=== PATIENT | female | born 1950 | race Caucasian/White ===

== ENCOUNTER → 2024-08-17 | Outpatient (CLI) | payer MEDICARE ==
[2024-08-17 10:11] VITALS: BP 185/90; PULSE 67; RESP 17; TEMP 97.9
--- NOTE | 2024-08-17 10:36 | P.GSCN ---
History of Present Illness Consult date: 08/17/24 Reason for Consult: Right breast invasive ductal carcinoma Requesting physician: Dusty Melo History of present illness: Janet is a 73 year old female seen in consultation for DR. Calderon, and Dr Melo for a right breast ultrasound-guided core biopsy at the 4 o'clock position. This was performed on 08-03-2024. Pathology revealed a invasive high- grade ductal carcinoma and high-grade ductal carcinoma in situ. The lesion was ER negative IA negative and HER2 pending. [id number]. 08-03-2024 revealing the invasive ductal carcinoma and DCIS. Note Dr. Santos radiology the clip could be seen on the cc position but it is so far posterior it could not be seen in the lateral position and if needle localization were necessary it was recommended that it be done via ultrasound. She underwent a bilateral screening mammogram on 07-04-2024. In the right breast posteriorly there was an area of increased density noted. No lesions of concern were noted in the left breast. Additional right breast ultrasound was recommended. This was performed on 07-17-2024. This revealed a 6 x 5 mm irregular shaped area of nodularity at the 4 o'clock position for which biopsy was recommended. Biopsy was performed on 08-03-24. She does not feel any lumps masses or nodules of concern in either breast. She is not complaining of any skin changes or nipple discharge. She has not had any recent trauma or infection in the breast. She had a left breast biopsy in the past. She is a regular blood donor and has HTN so told to see a property loss insurance claim adjuster Note Dr. Melo reviewed from 06-16-24 caffeine: 1 coffee/day nicotine: none chocolate: occasional BCP: < 5 years hormones: none Family History: daughter: Breast cancer, genetic testing not know results Maternal Aunt: Breast cancer father: lymph node cancer, ? 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 left she has to drink, about twice a month Nicotine: Negative Drugs: Negative Review of Systems - Constitutional Denies fever, Denies weight loss - EENT Eyes: denies blurred vision Ears: deny: decreased hearing, tinnitus Ears, nose, mouth and throat: Denies dysphagia - Breasts bilateral: as per HPI - Cardiovascular Cardiovascular Comment(s): murmur Reports as per HPI, Denies chest pain, Denies shortness of breath - Respiratory Denies cough, Denies 7 - Gastrointestinal Reports as per HPI - Genitourinary Genitourinary: Denies dysuria, Denies hematuria Menstruation: Reports postmenopausal - Musculoskeletal Reports as per HPI - Integumentary Denies rash, Denies unusual bruising - Neurological Denies headaches, Denies syncope - Psychiatric Reports as per HPI - Endocrine Reports as per HPI - Hematologic/Lymphatic Denies easy bleeding, Denies easy bruising - Allergic/Immunologic Reports as per HPI, Reports seasonal allergies Past Medical History Past Medical History: Hyperlipidemia, Hypertension, Thyroid Disorder History of Any Multi-Drug Resistant Organisms: None Reported Past Surgical History: Appendectomy, Hernia Repair, Tubal Ligation Additional Past Surgical History / Comment(s): 2-3 breast biopsy left breast- benign Past Anesthesia/Blood Transfusion Reactions: No Reported Reaction Past Psychological History: No Psychological Hx Reported Smoking Status: Never smoker Past Alcohol Use History: Rare Past Drug Use History: None Reported Medications and Allergies Home Medications Medication Instructions Recorded Confirmed Type Aspirin [[place] Aspirin EC] 81 mg PO DAILY 07/26/24 08/17/24 History Ezetimibe [Zetia] 10 mg PO DAILY 07/26/24 08/17/24 History Levothyroxine Sodium [Synthroid] 75 mcg PO DAILY 07/26/24 08/17/24 History amLODIPine [Norvasc] 10 mg PO DAILY 07/26/24 08/17/24 History lisinopriL 30 mg PO DAILY 07/26/24 08/17/24 History Allergies Allergy/AdvReac Type Severity Reaction Status Date / Time Sulfa (Sulfonamide Allergy Itching Verified 08/17/24 10:07 Antibiotics) Surgical - Exam - General no distress - Eyes normal ocular movement - Neck trachea midline - Respiratory normal respiratory effort, clear to auscultation - Cardiovascular Rhythm: regular Heart Sounds: normal: S1, S2 - Integumentary normal turgor - Neurologic no disoriented, no combative - Musculoskeletal normal gait - Psychiatric oriented to time, oriented to person, oriented to place, speech is normal, memory intact Breast Exam: BRA: 34A Inspection: bilateral grade 2 ptosis Palpation: right breast: Multi positional exam slight increased nodularity at the 4 o'clock position of the right breast, biopsy site clean and dry, questionable small hematoma at biopsy site otherwise no dominant masses or nodules of concern Right axilla: Shotty adenopathy nonworrisome Left breast: Multi positional exam no dominant masses or nodules of concern Left axilla: Shotty adenopathy nonworrisome Results bilateral mammogram and right breast mammogram results reviewed Assessment and Plan Assessment: Impression: right breast biopsy invasive ductal cancer Plan: present at tumor board CC: Dr. Melo
== END ==
LOC: WWCWWP 09:38
PROVIDERS: ATTEND Surgery
DX: C50.911 Malignant neoplasm of unspecified site of right female breast (principal); Z88.2 Allergy status to sulfonamides

== ENCOUNTER → 2024-09-14 | Outpatient (CLI) | payer MEDICARE ==
[2024-09-14 12:50] VITALS: BP 191/92; PULSE 80; RESP 16; TEMP 97.7
--- NOTE | 2024-09-14 13:02 | P.BCPN ---
Subjective Progress Note Date: 09/14/24 History of Present Illness Consult date: 09-14-24 Reason for Consult: Right breast invasive ductal carcinoma Requesting physician: Dusty Melo History of present illness: Janet is a 73 year old female seen in consultation for DR. Calderon, and Dr Melo for a right breast ultrasound-guided core biopsy at the 4 o'clock position. This was performed on 08-03-2024. Pathology revealed a invasive high- grade ductal carcinoma and high-grade ductal carcinoma in situ. The lesion was ER negative MO negative and HER2 pending. Postpro 08-03-24. 08-03-2024 revealing the invasive ductal carcinoma and DCIS. Note Dr. Santos radiology the clip could be seen on the cc position but it is so far posterior it could not be seen in the lateral position and if needle localization were necessary it was recommended that it be done via ultrasound. She underwent a bilateral screening mammogram on 07-04-2024. In the right breast posteriorly there was an area of increased density noted. No lesions of concern were noted in the left breast. Additional right breast ultrasound was recommended. This was performed on 07-17-2024. This revealed a 6 x 5 mm irregular shaped area of nodularity at the 4 o'clock position for which biopsy was recommended. Biopsy was performed on 08-03-24. She does not feel any lumps masses or nodules of concern in either breast. She is not complaining of any skin changes or nipple discharge. She has not had any recent trauma or infection in the breast. She had a left breast biopsy in the past. She is a regular blood donor and has HTN so told to see a architectural draftsperson Note Dr. Melo reviewed from 06-16-24 Case presented at tumor board on 08 22 24. The patient is recommended to undergo a right breast lumpectomy with sentinel node biopsy possible chemotherapy and radiation therapy secondary to the fact that this is a triple negative tumor. The patient is going to have genetic testing done and she would like to have the results of that test prior to making her final decision as to her operative intervention. I have called her and discussed that we would still recommend a lumpectomy however she states she wants to see the results of the genetic testing prior to making her final decision. We will ask that the Blackmon be put on the genetic testing. clearance cardiology and primary care We have discussed treatment options and patient would prefer right breast needle localization lumpectomy and SNB possible AND, oncoplastic tissue transfer. caffeine: 1 coffee/day nicotine: none chocolate: occasional BCP: < 5 years hormones: none Family History: daughter: Breast cancer, genetic testing not know results Maternal Aunt: Breast cancer father: lymph node cancer, ? 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 left she has to drink, about twice a month Nicotine: Negative Drugs: Negative Review of Systems - Constitutional Denies fever, Denies weight loss - EENT Eyes: denies blurred vision Ears: deny: decreased hearing, tinnitus Ears, nose, mouth and throat: Denies dysphagia - Breasts bilateral: as per HPI - Cardiovascular Cardiovascular Comment(s): murmur Reports as per HPI, Denies chest pain, Denies shortness of breath - Respiratory Denies cough - Gastrointestinal Reports as per HPI - Genitourinary Genitourinary: Denies dysuria, Denies hematuria Menstruation: Reports postmenopausal - Musculoskeletal Reports as per HPI - Integumentary Denies rash, Denies unusual bruising - Neurological Denies headaches, Denies syncope - Psychiatric Reports as per HPI - Endocrine Reports as per HPI - Hematologic/Lymphatic Denies easy bleeding, Denies easy bruising - Allergic/Immunologic Reports as per HPI, Reports seasonal allergies Past Medical History Past Medical History: Hyperlipidemia, Hypertension, Thyroid Disorder History of Any Multi-Drug Resistant Organisms: None Reported Past Surgical History: Appendectomy, Hernia Repair, Tubal Ligation Additional Past Surgical History / Comment(s): 2-3 breast biopsy left breast- benign Past Anesthesia/Blood Transfusion Reactions: No Reported Reaction Past Psychological History: No Psychological Hx Reported Smoking Status: Never smoker Past Alcohol Use History: Rare Past Drug Use History: None Reported Medications and Allergies Home Medications Medication Instructions Recorded Confirmed Type Aspirin [[place] Aspirin EC] 81 mg PO DAILY 07/26/24 08/17/24 History Ezetimibe [Zetia] 10 mg PO DAILY 07/26/24 08/17/24 History Levothyroxine Sodium [Synthroid] 75 mcg PO DAILY 07/26/24 08/17/24 History amLODIPine [Norvasc] 10 mg PO DAILY 07/26/24 08/17/24 History lisinopriL 30 mg PO DAILY 07/26/24 08/17/24 History Allergies Allergy/AdvReac Type Severity Reaction Status Date / Time Sulfa (Sulfonamide Allergy Itching Verified 08/17/24 10:07 Antibiotics) Objective - Constitutional General appearance: Present: cooperative - EENT Eyes: Present: EOMI ENT: Present: hearing grossly normal - Neck Neck: Present: normal ROM - Breast Breast-Narrative: Breast Exam: BRA: 34A Inspection: bilateral grade 2 ptosis Palpation: right breast: Multi positional exam slight increased nodularity at the 4 o'clock position of the right breast, biopsy site clean and dry, questionable small hematoma at biopsy site otherwise no dominant masses or nodules of concern Right axilla: Shotty adenopathy nonworrisome Left breast: Multi positional exam no dominant masses or nodules of concern Left axilla: Shotty adenopathy nonworrisome Bra Size: bra 34A Ptosis: Grade 2: Right Breast Ptosis, Left Breast Ptosis Breast: right: mass (nodularity at 4:00), left: normal, both: axillary nodes (shoddy bilat, nonworrisome) Right Breast Palpation (Multi-positional): Other Left Breast Palpation (Multi-positional): No dominant masses Right Axilla Palpation: Other Left Axilla Palpation: Other - Respiratory Respiratory: bilateral: CTA - Cardiovascular Rhythm: regular Heart sounds: normal: S1, S2 - Gastrointestinal General gastrointestinal: Present: soft - Integumentary Integumentary: Present: normal turgor - Musculoskeletal Musculoskeletal: Present: gait normal - Psychiatric Psychiatric: Present: A&O x's 3, appropriate affect, intact judgment & insight Assessment and Plan Plan: Impression: right breast biopsy invasive ductal cancer Plan: present at tumor board/ done on 08-22-24 case presented at tumor board on 08 22 24. The patient is recommended to undergo a right breast lumpectomy with sentinel node biopsy possible chemotherapy and radiation therapy secondary to the fact that this is a triple negative tumor. The patient is going to have genetic testing done and she would like to have the results of that test prior to making her final decision as to her operative intervention. I have called her and discussed that we would still recommend a lumpectomy however she states she wants to see the results of the genetic testing prior to making her final decision. We will ask that the Blackmon be put on the genetic testing. clearance cardiology and primary care genetic testing results pending; iof (-) We have discussed treatment options and patient will have a right breast needle localization lumpectomy and SNB possible AND, possible oncoplastic tissue transfer. CC: Dr. Melo Additional CC's: Dusty Calderon Prep Education Provided - Preoperative Education Given Pre-Op Kit Given Date: 09/14/24 - Functional Assessment Performed?: Yes (arm abducgtion passed) - Smoking Cessation Education Provided?: No (nonsmoker)
== END ==
LOC: WWCWWP 11:23
PROVIDERS: ATTEND Surgery
DX: C50.911 Malignant neoplasm of unspecified site of right female breast (principal); Z88.5 Allergy status to narcotic agent

== ENCOUNTER 2024-09-19 07:27 | Day surgery (SDC) | payer MEDICARE ==
[2024-09-14 16:02] VITALS: BMI 21.0
[~2024-09-19 07:27] MED LIST: HYDROmorphone 0.5 MG/0.5 ML SYRINGE IVP PRN; MIDAZOLAM 2 MG/2 ML VIAL IV PRN; fentaNYL (PF) 50 MCG/ML 2 ML AMP IVP PRN
[2024-09-19] MEDS ORDERED: METHYLENE BLUE 50 MG/10 ML VIAL MISCELLANE ONE (08:00)
[2024-09-19] MEDS: LIDOCAINE 1% (10MG/ML) FOR IV START INTRADERMA PRN (08:06)
[2024-09-19] MEDS: ACETAMINOPHEN TAB 500 MG TAB PO PRN (08:06)
[2024-09-19] MEDS: ALPRAZolam 0.25 MG TAB PO STA (08:06)
[2024-09-19] MEDS: LACTATED RINGERS 1,000 ML IV SCH (08:07)
[2024-09-19 08:40] LABS: Basophils % (A) 0 %; Eosinophils % (A) 1 %; HCT 42.1 % (34.0-46.0); HGB 14.1 gm/dL (11.4-16.0); Lymphocytes # (A) 1.1 k/uL (1.0-4.8); Lymphocytes % (A) 24 %; MCH 30.6 pg (25.0-35.0); MCHC 33.5 g/dL (31.0-37.0); MCV 91.3 fL (80.0-100.0); Mean Platelet Volume 7.9; Monocytes # (A) 0.3 k/uL (0-1.0); Monocytes % (A) 7 %; Neutrophils # (A) 2.9 k/uL (1.3-7.7); Neutrophils % (A) 65 %; Platelet Count 156 k/uL (150-450); RBC 4.61 m/uL (3.80-5.40); RDW 12.4 % (11.5-15.5); WBC 4.4 k/uL (3.8-10.6)
[2024-09-19] MEDS: SODIUM BICARB 8.4% 50 ML SYR (1 MEQ/ML) MISCELLANE ONE (08:47)
[2024-09-19] MEDS: LIDOCAINE 1% INJ 10MG/ML (20 ML MDV) SQ ONE (08:47)
[2024-09-19 08:48] LABS: African American GFR (CKD) >90 (>60 ml/min/1.73 sqM); Anion Gap 5 mmol/L; Blood Urea Nitrogen 13 mg/dL (7-17); Calcium 9.5 mg/dL (8.4-10.2); Carbon Dioxide 30 mmol/L (22-30); Chloride 100 mmol/L (98-107); Glucose 85 mg/dL (74-99); Non-African American GFR(CKD) >90 (>60 ml/min/1.73 sqM); Sodium 135 mmol/L (137-145)
[2024-09-19] MEDS: METHYLENE BLUE 50 MG/10 ML VIAL MISCELLANE ONE (08:53)
[2024-09-19 08:54] LABS: Potassium 4.5 mmol/L (3.5-5.1)
[2024-09-19] MEDS: IV FLUID CONTINUATION 1,000 ML IV ONE (09:39)
[2024-09-19] MEDS: HEPARIN SODIUM,PORCINE 5,000 UNIT/ML 1 ML VIAL SQ PRN (09:39)
[2024-09-19] MEDS: DEXAMETHASONE SOD PHOSPHATE 4 MG/ML 1 ML VIAL IV ONE (09:39)
[2024-09-19] MEDS: ONDANSETRON 4 MG/2 ML VIAL IVP ONE (09:39)
[2024-09-19] MEDS ORDERED: SUCCINYLCHOLINE CHLORIDE 200 MG/10 ML VIAL IV ONE (09:47)
[2024-09-19] MEDS ORDERED: LIDOCAINE 4% LTA KIT (4 ML) TOPICAL ONE (09:47)
[2024-09-19] MEDS ORDERED: PROPOFOL 10 MG/ML 20 ML VIAL IV ONE (09:47)
[2024-09-19] MEDS ORDERED: MIDAZOLAM 2 MG/2 ML VIAL ONE (09:47)
[2024-09-19] MEDS ORDERED: ePHEDrine 50 MG/ML 1 ML VIAL ONE (09:47)
[2024-09-19] MEDS ORDERED: fentaNYL (PF) 50 MCG/ML 2 ML AMP ONE (09:47)
[2024-09-19] MEDS ORDERED: WATER FOR INJECTION, STERILE 10 ML VIAL IV ONE (09:47)
[2024-09-19] MEDS ORDERED: diphenhydrAMINE 50 MG/ML 1 ML VIAL ONE (09:47)
[2024-09-19] MEDS ORDERED: PHENYLEPHRINE 10 MG/ML VIAL ONE (09:47)
--- NOTE | 2024-09-19 10:00 | P.NAPBC ---
NAP Queries - [facility] Queries Was patient's case review presented at [facility] tumor board? If no, comment.: Yes Was patient's pathology reviewed at [facility]? If no, comment.: Yes Was breast conservation surgery offered? If no, comment.: Yes Was sentinel node biopsy offered? If no, comment.: Yes Was diagnosis confirmed by percutaneous core biopsy? If no, comment.: Yes Is patient mastectomy patient?: No Was a preop referral to reconstructive surgeon offered?: No [facility] Comments: invasive ductal caner right breast Clinical Stage: [id number]-, right breast invasive ductal cancer
[2024-09-19] MEDS: LIDOCAINE 1% INJ 10MG/ML (30 ML VIAL-PF) SQ ONE ×2 (10:21→11:06)
--- NOTE | 2024-09-19 10:53 | NM ---
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 The benefits, alternatives, and risks were discussed. An informed consent was then obtained. Overlying skin is cleaned with sterile alcohol. Following this, 496 uCi Tc99m Tilmanocept was inject ed in the upper outer aspect of the right nipple intradermally. The patient tolerated the procedure well without any immediate complication. The patient was kept in the radiology department for short stay after the procedure and then taken to surgery for surgical p rocedure what is presumed intraoperative gamma probe will be used for sentinel lymph node detection. IMPRESSION: Right breast radiotracer injection for sentinel node localization as above. [facility] Pope, , 09/19/2024 10:51 AM
--- NOTE | 2024-09-19 11:08 | MM ---
Electronically signed and approved by: Juan Snow M.D. Radiologis
--- NOTE | 2024-09-19 11:13 | P.BCAON ---
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 Postoperative Diagnosis: Same Procedure(s) Performed: Right breast needle localization lumpectomy, right sentinel node biopsy Anesthesia: IMANI Surgeon: Diane Clayton Estimated Blood Loss (ml): 5 IV fluids (ml): 800 Pathology: other (Right sentinel node biopsy, right needle localization lumpectomy) Condition: stable Disposition: same day Indications for Procedure: Biopsy-proven right breast invasive ductal carcinoma Operative Findings: Dense breast tissue Description of Procedure: The patient was seen in the radiology department where needle localization by ultrasound was performed of the area of concern in the right breast. At the time of needle localization approximately 1 cc of half percent methylene blue was injected at the tip of the needle. The wire was then placed. Postprocedure the wire was noted to be in the correct location. Radiotracer was injected in the periareolar region. The patient was brought to the operative suite. Following induction of anesthesia the neoprobe was used to interrogate the axilla. Upon interrogation of the axilla radioactivity was identified in the axilla. Using the neoprobe an incision was made in the axilla. This was carried down to a radioactive site. The tissue was excised. The 10-second count on the tissue was 12,152. The background count at 10 seconds was 14. No blue or radioactive additional tissue or palpable tissue of concern was identified. The wound was well irrigated. The deep tissues were closed using 3-0 Vicryl suture. The skin was closed using 4-0 Monocryl. This was done after we are sure that hemostasis was attained. Following this the area of the breast was approached. An incision was made and carried down to the shaft of the needle. This was followed posteriorly onto the pectoralis muscle where the methylene blue was identified. The dissection posteriorly was directly on the pectoralis muscle. The surrounding tissue was removed from the hook of the needle. After we were assured that hemostasis was attained the specimen was painted for orientation. Radiograph of the specimen revealed the area of concern had been removed. At the the wound was well irrigated. Titanium clips were placed. The deep tissues were closed using 3-0 Vicryl suture. The subcutaneous tissue was closed using 3-0 Vicryl suture. The skin was closed using 4-0 Monocryl. The incisions were injected with 5 cc of 1% lidocaine each. Surgical glue was placed. The patient tolerated the procedure in stable condition. All instrument and sponge counts were correct at the end of the case. - Sentinal Node Biopsy Operation performed with curative intent: Yes Tracer(s) used in upfront surgery (non-neoadjuvant): dye, radioactive tracer Tracer(s) used in the neoadjuvant setting: N/A All nodes present at end of dye-filled channel removed: Yes All significantly radioactive nodes were removed: Yes All palpably suspicious nodes were removed: Yes
[2024-09-19 11:39] VITALS: TEMP 96.8
[2024-09-19] MEDS: hydrALAZINE HCL 20 MG/ML 1 ML VIAL IVP STA (13:06)
[2024-09-19] MEDS: LACTATED RINGERS 500 ML IV ONE (13:16)
[2024-09-19 13:20] VITALS: PULSE 78; RESP 16
[2024-09-19 13:36] VITALS: BP 139/78
--- NOTE | 2024-09-25 13:58 | MM ---
Reason for Exam: Post Procedure Mammogram. Last mammogram was performed 17 year(s) and 0 month(s) ago. Patient History: Menarche at age 12. First Full-Term at age 19. Postmenopausal. Breast cancer, right, age 73. Hormonal Contraceptives, starting at age 20 for 2 years. 08/03/2024, Malignant US biopsy breast VAD RT on the right side. Benign Excisional Biopsy on the right side. 12/28/2007, Benign Excisional Biopsy on the left side. Maternal aunt had breast cancer. Prior Study Comparison: 10/14/2007 Bilateral Screening Mammogram, [facility]. 06/12/2008 Left Diagnostic Mammogram, [facility]. 08/03/2024 Right MG diagnostic mammo RT wo CAD, [facility]. Tissue Density: Right: There are scattered areas of fibroglandular density. Pathology Description: Location: 4 o'clock. Needle Type: 5 cm [place] Informed consent was obtained and all the patient's questions were answered. The clip in question was localized sonographically. The standard sterile technique was utilized, as well as appropriate local anesthesia with 1% Lidocaine and bicarbonate. Localization needle followed by placement of a guidewire was performed under sonographic guidance. Verification images demonstrate appropriate deployment of the guidewire. The patient tolerated the procedure well and left the department in stable condition. Specimen radiograph demonstrates the clip and guidewire in question to reside within the specimen. IMPRESSION: Successful needle localization and open biopsy right breast with pathology results pending. [facility], , 09/19/2024 11:05 AM. Pathology Results: Result: Malignant, Invasive ductal carcinoma. Pathology and radiology were reviewed. Findings are concordant. A. RIGHT BREAST TISSUE, LUMPECTOMY: Invasive poorly differentiated ductal carcinoma (Grade 3) and high grade DCIS, margins negative for invasive malignancy or DCIS. See Surgical Pathology Cancer Case Summary. B. SENTINEL LYMPH NODE, RIGHT BREAST: Two lymph nodes negative for metastasis. CK7 immunostain performed on block B1, VARINDER immunostain performed on block B2, and CK AE1/3 immunostain performed on block B3 are confirmatory (controls appropriate). Overall Assessment: Malignant Assessment: MG diagnostic mammo RT wo CAD - Right: Known biopsy proven malignancy, BI-RAD 6. Management: Surgical Consultation of the right breast. Electronically signed and approved by: Juan Snow M.D. Radiologis
== END 2024-09-19 14:03 | disposition home or self-care (01) ==
LOC: OR 07:27
PROVIDERS: ATTEND Surgery
DX: D05.11 Intraductal carcinoma in situ of right breast (principal); I10 Essential (primary) hypertension; E07.9 Disorder of thyroid, unspecified; Z90.49 Acquired absence of other specified parts of digestive tract; Z88.2 Allergy status to sulfonamides; Z79.890 Hormone replacement therapy; Z79.899 Other long term (current) drug therapy
CPT/HCPCS: 80048; 85025; 88342; 88307; 88341; 77065; 76098; 19285; 38792; 19301; 38525; C1819; A9520; J2250; J0330; J0360; J1200; J1644; J1100; J0690; J2405; J2003 ×2; J3010; J2704; Q9968; J2371

== ENCOUNTER → 2024-09-28 | Outpatient (CLI) | payer MEDICARE, OTHER ==
[2024-09-28 11:05] VITALS: BP 170/90; PULSE 72; RESP 17; TEMP 98
--- NOTE | 2024-09-28 11:19 | P.BCPO ---
Progress Note - Text Progress Note Date: 09/28/24 Janet is status post right breast lumpectomy and SNB on 09-19-24, Her pathology revealed a 7 mm IDC, and 12 mm DCIS all margins (-). DCIS < 2mm from posterior and posterior medial margins. Two sentinel nodes (-). Examination: lungs: clear heart: RRR incision: breast and axilla: clean and dry Impression: patient doing well post op Plan: follow up in 4 months follow up sooner if any concerns appointment medical oncology appointment radiation oncology CC: Lorie Cornell
== END ==
LOC: WWCWWP 10:50
PROVIDERS: ATTEND Surgery
DX: D05.10 Intraductal carcinoma in situ of unspecified breast (principal); Z98.890 Other specified postprocedural states; Z88.5 Allergy status to narcotic agent